=== PATIENT | female | born 1960 | race Caucasian/White ===

== ENCOUNTER 2019-11-06 15:50 | Emergency (ER) | payer OTHER ==
[~2019-11-06] VITALS: Ht 162.6 cm; Wt 104.3 kg
[2019-11-06 16:04] VITALS: Ht 162.6 cm; Wt 104.3 kg
[2019-11-06 20:04] VITALS: BP 148/69
== END 2019-11-06 20:05 | disposition home or self-care (01) ==
LOC: ED 15:50
DX: S82.042A Displaced comminuted fracture of left patella, initial encounter for closed fracture (principal); M54.9 Dorsalgia, unspecified; M25.552 Pain in left hip; E11.9 Type 2 diabetes mellitus without complications; Z88.0 Allergy status to penicillin; X50.1XXA Overexertion from prolonged static or awkward postures, initial encounter; Y93.89 Activity, other specified; Y92.89 Other specified places as the place of occurrence of the external cause; Y99.8 Other external cause status
CPT/HCPCS: J1885; Q0092